=== PATIENT | female | born 1945 | race Caucasian/White ===

== ENCOUNTER 2024-01-25 10:20 | Emergency (ER) | payer MEDICARE, OTHER ==
[~2024-01-25] VITALS: Ht 157.5 cm; Wt 80.7 kg
[~2024-01-25 10:20] MED LIST: ESTR0.5T36 PO; MEDR2.5T7 PO; PRAM0.253 PO; SIMV-42 PO; TIMO10DR29 EACHEYE; TRAM50TA2 PO
[2024-01-25 10:31] VITALS: TEMP 97.6
[2024-01-25 13:36] VITALS: BP 144/74; PULSE 75; O2SAT 97
[2024-01-25 13:37] VITALS: RESP 14
[2024-01-25] MEDS: HYDROcodone/acetaminophen 5mg/325mg tablet PO ONE (13:37)
[2024-01-25] MEDS: ondansetron 4mg rapidly disintigrating tab PO ONE (13:37)
== END 2024-01-25 13:38 | disposition home or self-care (01) ==
LOC: ER 10:21
DX: M54.31 Sciatica, right side (principal); Z88.1 Allergy status to other antibiotic agents; Z88.8 Allergy status to other drugs, medicaments and biological substances; Z79.899 Other long term (current) drug therapy
CPT/HCPCS: 93971; 99284

== ENCOUNTER 2024-04-20 14:40 | Emergency (ER) | payer MEDICARE, OTHER ==
[~2024-04-20] VITALS: Ht 162.6 cm; Wt 69.0 kg
[2024-04-20] MEDS: ondansetron/PF 4mg/2ml inj IV ONE (14:50)
[2024-04-20] MEDS: morphine 4 MG/ML inj SYRINge IV ONE ×2 (14:50→16:31)
[2024-04-20] MEDS: BUPIVAcaine/PF 2.5 mg/ml (0.25%) 30ml vial IJ ONE (14:55)
[2024-04-20] MEDS: LIDOcaine 1% 30ml preserv. free vial IJ ONE (14:55)
[2024-04-20] MEDS: BUPIVAcaine/PF 2.5mg/ml (0.25%) 10ml vial IJ ONE (15:59)
[2024-04-20] MEDS: ceFAZolin/D5W- 1GM premix 50 ML IV ONE (16:05)
[2024-04-20 17:06] VITALS: BP 173/109; PULSE 102; RESP 16; O2SAT 96
[2024-04-21 04:00] VITALS: TEMP 97.5
== END 2024-04-20 19:10 | disposition hospice, inpatient (51) ==
LOC: ER 14:40
DX: S66.121A Laceration of flexor muscle, fascia and tendon of left index finger at wrist and hand level, initial encounter (principal); S66.123A Laceration of flexor muscle, fascia and tendon of left middle finger at wrist and hand level, initial encounter; S66.125A Laceration of flexor muscle, fascia and tendon of left ring finger at wrist and hand level, initial encounter; Z88.8 Allergy status to other drugs, medicaments and biological substances; Z79.899 Other long term (current) drug therapy; W01.0XXA Fall on same level from slipping, tripping and stumbling without subsequent striking against object, initial encounter; Y93.89 Activity, other specified; Y92.89 Other specified places as the place of occurrence of the external cause; Y99.8 Other external cause status
CPT/HCPCS: 73130; 96365; 96375; 96376; 99291; A6222; A6258; A6402; A6446; J0690; J2270; J2405; 99285; A6449

== ENCOUNTER 2024-05-05 09:32 | Outpatient (CLI) | payer MEDICARE, OTHER | END 2024-05-05 23:59 | disposition home or self-care (01) | LOC: MRI02 09:32 | PROVIDERS: ATTEND Physician Assistant Surgical | DX: S83.8X1A Sprain of other specified parts of right knee, initial encounter (principal); M17.11 Unilateral primary osteoarthritis, right knee; M71.21 Synovial cyst of popliteal space [Baker], right knee; M25.561 Pain in right knee; X58.XXXA Exposure to other specified factors, initial encounter; Y93.89 Activity, other specified; Y92.89 Other specified places as the place of occurrence of the external cause; Y99.8 Other external cause status | CPT/HCPCS: 73721 ==

== ENCOUNTER 2024-08-17 13:15 | Outpatient (CLI) | payer MEDICARE, OTHER ==
[2024-08-17 14:17] LABS: ALANINE AMINOTRANSFERASE 25 U/L (12-78); ALBUMIN 3.4 G/DL (3.4-5.0); ALBUMIN/GLOBULIN RATIO 0.8 (1.1-1.5); ALKALINE PHOSPHATASE 68 IU/L (46-116); ANION GAP 7 (8-16); ASPARTATE AMINO TRANSFERASE 18 U/L (10-37); BILIRUBIN,TOTAL 0.6 MG/DL (0.1-1.0); BLOOD UREA NITROGEN 18 MG/DL (7-18); BUN/CREATININE RATIO 18.8 (10.0-20.0); CALCIUM 9.3 MG/DL (8.5-10.1); CHLORIDE 103 MMOL/L (99-107); CREATININE 0.96 MG/DL (0.40-0.90); GLUCOSE 95 MG/DL (70-104); LACTATE DEHYDROGENASE 205 U/L (81-234); POTASSIUM 4.3 MMOL/L (3.5-5.1); SODIUM 141 MMOL/L (135-145); TOTAL CARBON DIOXIDE 30.7 MMOL/L (24-32); TOTAL PROTEIN 7.6 G/DL (6.4-8.2); eGFR 56 ML/MIN
== END 2024-08-17 23:59 | disposition home or self-care (01) ==
LOC: RAD 13:15
PROVIDERS: ATTEND Physician Assistant
DX: R09.89 Other specified symptoms and signs involving the circulatory and respiratory systems (principal); R06.2 Wheezing
CPT/HCPCS: 36415; 71046; 80053; 83615

== ENCOUNTER 2024-08-31 12:12 | Outpatient (CLI) | payer MEDICARE, OTHER | END 2024-08-31 23:59 | disposition home or self-care (01) | LOC: RAD 12:12 | PROVIDERS: ATTEND Physician Assistant | DX: J06.9 Acute upper respiratory infection, unspecified (principal); Q25.46 Tortuous aortic arch; M47.814 Spondylosis without myelopathy or radiculopathy, thoracic region | CPT/HCPCS: 71046 ==

== ENCOUNTER 2024-11-07 15:06 | Outpatient (CLI) | payer MEDICARE, OTHER ==
--- NOTE | 2024-11-07 17:04 | RADIOLOGY REPORT ---
EXAM: DI KNEE, COMP 4 VW MIN HISTORY: S/P TOTAL KNEE REPLACEMENT COMPARISON: None TECHNIQUE: Four views of the right knee were performed. FINDINGS/IMPRESSION: 1. Right total knee arthroplasty without evidence of periprosthetic fracture, loosening, or other com plication. 2. Moderate to large joint effusion accumulates in the suprapatellar pouch.
--- NOTE | 2024-11-07 17:04 | RADIOLOGY REPORT ---
EXAM: DI KNEE, COMP 4 VW MIN HISTORY: 79-year-old female with left knee pain. COMPARISON: None TECHNIQUE: Four views of the left knee were performed. FINDINGS: No fracture or significant degenerative changes are identified about the right knee. No lateral eduardo lar tilt or subluxation on the sunrise view. There is a smoothly marginated calcification in the soft tissues superomedial to the patella. No evidence of significant joint effusion. IMPRESSION: No acute fracture or significant degenerative changes of the left knee.
== END 2024-11-07 23:59 | disposition home or self-care (01) ==
LOC: RAD 15:06
PROVIDERS: ATTEND Orthopaedic Surgery
DX: M25.461 Effusion, right knee (principal); Z96.659 Presence of unspecified artificial knee joint; M17.0 Bilateral primary osteoarthritis of knee
CPT/HCPCS: 73564